=== PATIENT | female | born 1995 | race African-American/Black ===

== ENCOUNTER 2020-07-10 12:38 | Outpatient (REF) | payer OTHER, SELFPAY | END 2020-07-10 12:39 | disposition home or self-care (01) | LOC: HO.LAB 12:38 | PROVIDERS: Visit Provider Internal Medicine | DX: Z12.4 Encounter for screening for malignant neoplasm of cervix (principal) | CPT/HCPCS: 88142 ==

== ENCOUNTER 2022-06-25 13:56 | Outpatient (REF) | payer OTHER, SELFPAY | END 2022-06-25 13:57 | disposition home or self-care (01) | LOC: HO.HOSX 13:56 | PROVIDERS: Visit Provider Physician Assistant | DX: Z13.89 Encounter for screening for other disorder (principal) ==

== ENCOUNTER 2023-10-19 15:37 | Outpatient (AMB) | payer OTHER, SELFPAY ==
[2023-10-19 15:44] VITALS: BP 94/51; PULSE 82; RESP 16; TEMP 35.9; O2SAT 99; BMI 26.8
--- NOTE | 2023-10-19 15:44 | A.OFFPC_ITS ---
Vital Signs 10/19/23 15:44 Height 5 ft 6 in Weight 166 lb 2 oz BMI 26.8 BP 94/51 L Blood Pressure Location Rt brachial Position Sitting Respiration 16 Pulse 82 Pulse Source Pulse Oximeter Temp 96.6 F L Temp Source Tympanic Pulse Oximetry (%) 99 Oxygen Delivery Method Room Air Intake Visit Reasons: Med review Intake Note: med review Allergies No Known Allergies Allergy (Verified 10/19/23 15:45) Tobacco use date assessed: 04/02/22 HPI Med review HPI Details 28 y/o female presents to f/u anxiety. She is on bupropion 75mg b.i.d. and states this has not been working well for her. She denies any hx of bipolar disorder. She denies any known family hx of bipolar diagnoses. PHQ-9 0, SUZETTE-7 16 today. Pt reports a rash on her face. HPI Comments History of Present Illness Details Documentation assistance for Moses Parish MD, was provided by Nicholas Coto,? [employer] on 10/19/2023 at 4:19 PM EST. I, Dr. Parish, have read, observed, and verified documentation. [facility] Medical History (Updated 10/19/23 @ 16:20 by Nicholas Coto) Arthralgia Annual physical exam Surgical History History of mandibular surgery Family History Mother HTN (hypertension) Asthma Father Liver cancer Sister Mental health disorder Sister Uterine cancer Brother Seizures Social History Housing: House Alcohol intake: current Alcohol intake frequency: a few times a week Patient Tobacco Use Status: Never used Tobacco e-Cigarette/Vaping Use: Never Used Current occupational status: employed Cognitive needs: No Hearing needs: No Vision needs: Yes Questionnaire Thrive Questionnaire Date Thrive assessed: 04/02/22 SUZETTE-7 AMB Questionnaire SUZETTE-7 Date SUZETTE - 7 assessed: 04/02/22 Source: Developed by Drs. Lawrence Landin, Nancy Dominique, Fili Washington and colleagues, with an educational shelby from [employer]. Review of Systems Const Denies chills, Denies fatigue, Denies fever(s), Denies headache(s) and Denies weakness ENT Denies dizziness and Denies headache(s) Card Denies dyspnea Resp Denies cough, Denies dyspnea, Denies wheezing and Denies other (shortness of breath) Musc Denies numbness and Denies tingling Skin/Breast Reports rash Neuro Denies dizziness, Denies headache(s), Denies numbness, Denies tingling and D enies weakness Psych Reports anxiety Endo Denies fatigue Aller/Immun Denies wheezing Physical exam (Primary Care) Vital Signs: Last Vital Signs Temp 96.6 F L 10/19/23 15:44 Pulse 82 10/19/23 15:44 Resp 16 10/19/23 15:44 BP 94/51 L 10/19/23 15:44 Pulse Ox 99 10/19/23 15:44 Oxygen Delivery Method Room Air 10/19/23 15:44 BMI result Body Mass Index 26.8 Tobacco/Smoking Status: Tobacco use Status Tobacco use date assessed 04/02/22 10/19/23 15:51 Patient Tobacco Use Status Never used Tobacco 10/19/23 15:51 e-Cigarette/Vaping Use Never Used 10/19/23 15:51 PHQ-9: PHQ-9 Score PHQ-9: Total score 0 10/19/23 15:59 Thrive Assessment: Date of Thrive Assessment Date Thrive assessed 04/02/22 10/19/23 15:51 Const General: well developed; No acute distress Nutritional Appearance: well nourished Orientation/consciousness: patient oriented x3 [facility]: Yes normocephalic and Yes atraumatic Eyes General: appearance normal, both eyes and all related structures Pupils: Equal, round and reactive pupils present EOM: EOMs intact bilaterally Resp Effort & Inspection: normal respiratory effort Neuro General: patient oriented x3 and gait normal Cranial nerves: Yes Equal, round and reactive pupils present Psych Affect: Anxious affect present Assessment and Plan Assessment & Plan (1) Anxiety: Code(s): F41.9 - Anxiety disorder, unspecified Plan: Significant?anxiety She?had?been?on?bupropion?in?the?past?and?this?had?not?helped?much. There?was?a?question?of?possible?b ipolar?disorder?in?the?family.??This?seems?less?likely?at?this?point. Trial?of?venlafaxine - 37.5?mg once?a?day?and?titrate?up?to?twice?a?day. Will?also?give?her?a?script?of?hydroxyzine?which?he?can?take?p.r.n. Will?follow-up?in?about?a?month (2) Rash: Code(s): R21 - Rash and other nonspecific skin eruption Plan: Pustular?rash?on?face Will?give?her?a?short?course?of?doxycycline?and?she?can?use?Hibiclens - avoid?eyes If?not?improving?will?refer?to?Dermatology Orders: Orders Comprehensive Perry. Panel Fast Today Z00.00 - Encounter for general adult medical examination without abnormal findings TSH reflex Free T4 Today Z00.00 - Encounter for general adult medical examination without abnormal findings CT NG by PCR Today Z11.3 - Encounter for screening for infections with a predominantly sexual mode of transmission HIV Ab/Ag Today Z11.3 - Encounter for screening for infections with a predo minantly sexual mode of transmission Hepatitis B,C Profile Today Z11.3 - Encounter for screening for infections with a predominantly sexual mode of transmission Syphilis Screen Today Z11.3 - Encounter for screening for infections with a predominantly sexual mode of transmission Complete Blood Count Auto Diff Today Z00.00 - Encounter for general adult medical examination without abnormal findings Lipid Panel Today Z00.00 - Encounter for general adult medical examination without abnormal findings Microalbumin, Random (w Creat) Today I10 - Essential (primary) hypertension UA and rflx microscopic Today Z00.00 - Encounter for general adult medical examination without abnormal findings Medications: New hydroxyzine HCl 50 mg PO BID 30 days PRN 60 tabs 1RF anxiety venlafaxine 37.5 mg (1/2 x 75 mg) PO BID 30 days 30 tabs 1RF doxycycline hyclate 100 mg PO BID 7 days 14 caps 0RF Coding Level of Care Code Est Pt Level 3 (71406) Diagnoses Anxiety F41.9 Rash R21
--- NOTE | 2023-10-19 15:44 | A.OFFPC_ITS ---
Vital Signs 10/19/23 15:44 Height 5 ft 6 in Weight 166 lb 2 oz BMI 26.8 BP 94/51 L Blood Pressure Location Rt brachial Position Sitting Respiration 16 Pulse 82 Pulse Source Pulse Oximeter Temp 96.6 F L Temp Source Tympanic Pulse Oximetry (%) 99 Oxygen Delivery Method Room Air Intake Visit Reasons: Med review Allergies No Known Allergies Allergy (Verified 10/19/23 15:45) Tobacco use date assessed: 04/02/22 [facility] Medical History (Updated 04/02/22 @ 15:32 by Nicholas Coto) Arthralgia Annual physical exam Surgical History History of mandibular surgery Family History Mother HTN (hypertension) Asthma Father Liver cancer Sister Mental health disorder Sister Uterine cancer Brother Seizures Social History Housing: House Alcohol intake: current Alcohol intake frequency: a few times a week Patient Tobacco Use Status: Never used Tobacco e-Cigarette/Vaping Use: Never Used Current occupational status: employed Cognitive needs: No Hearing needs: No Vision needs: Yes Questionnaire PHQ-9 Over the last 2 weeks, how often have you been bothered by any of the following problems? 1. Little interest or pleasure in doing things: not at all 2. Feeling down, depressed, or hopeless: not at all 3. Trouble falling or staying asleep, or sleeping too much: not at all 4. Feeling tired or having little energy: not at all 5. Poor appetite or overeating: not at all 6. Feeling bad about yourself - or that you are a failure or have let yourself or your family down: not at all 7. Trouble concentrating on things, such as reading the newspaper or watching television: not at all 8. Moving or speaking so slowly that other people could have noticed. Or the opposite - being so fidgety or restless that you have been moving around a lot more than usual: not at all 9. Thoughts that you would be better off or of hurting yourself in some way: not at all Total score: 0 Depression Screening Interpretation: Negative Depression Screening Done: Yes 41023 - PHQ-9 Billing: Yes Source: Developed by Drs. Lawrence Landin, Fili Ybarra and colleagues, with an educational shelby from [employer]. Thrive Questionnaire Date Thrive assessed: 04/02/22 SUZETTE-7 AMB Questionnaire SUZETTE-7 Date SUZETTE - 7 assessed: 10/19/23 Feeling nervous, anxious, or on edge: 3 = Nearly every day Not being able to stop or control worryin = Nearly every day Worrying too much about different things: 3 = Nearly every day Trouble relaxin = Nearly every day Being so restless that it is hard to sit still: 0 = Not at all Becoming easily annoyed or irritable: 3 = Nearly every day Feeling afraid as if something awful might happen: 1 = Several days Total SUZETTE-7 score (0-4 normal; 5-9 mild; 10-14 moderate; 15-21 severe): 16 Source: Developed by Drs. Lawrence Landin, Nancy Dominique, Fili Washington and colleagues, with an educational shelby from [employer]. SUZETTE-7 Assessment Billing SUZETTE-7 Assessment Tool: SUZETTE-7 Assessment 79867 Physical exam (Primary Care) Vital Signs: Last Vital Signs Temp 96.6 F L 10/19/23 15:44 Pulse 82 10/19/23 15:44 Resp 16 10/19/23 15:44 BP 94/51 L 10/19/23 15:44 Pulse Ox 99 10/19/23 15:44 Oxygen Delivery Method Room Air 10/19/23 15:44 BMI result Body Mass Index 26.8 Tobacco/Smoking Status: Tobacco use Status Tobacco use date assessed 04/02/22 10/19/23 15:51 Patient Tobacco Use Status Never used Tobacco 10/19/23 15:51 e-Cigarette/Vaping Use Never Used 10/19/23 15:51 PHQ-9: PHQ-9 Score PHQ-9: Total score 0 10/19/23 15:45 Depression Screening Interpretation: Negative Thrive Assessment: Date of Thrive Assessment Date Thrive assessed 04/02/22 10/19/23 15:51 Coding Additional Codes SUZETTE-7 Assessment Billing - SUZETTE-7 Assessment Tool: SUZETTE-7 Assessment 60013 ([id number])
== END 2023-10-19 16:25 | disposition home or self-care (01) ==
PROVIDERS: PCP Family Medicine; Visit Provider Family Medicine
DX: F41.9 Anxiety disorder, unspecified (principal); R21 Rash and other nonspecific skin eruption
CPT/HCPCS: 99213

== ENCOUNTER 2023-11-25 14:33 | Outpatient (AMB) | payer OTHER, SELFPAY ==
--- NOTE | 2023-11-25 14:43 | A.OFFPC_ITS ---
Vital Signs 11/25/23 14:47 Height 5 ft 6 in Weight 164 lb BMI 26.5 BP 100/60 Blood Pressure Location Lt brachial Position Sitting Respiration 16 Pulse 85 Pulse Source Pulse Oximeter Temp 98.1 F Temp Source Oral Pulse Oximetry (%) 98 Oxygen Delivery Method Room Air Intake Visit Reasons: MED REVIEW Intake Note: med follow up Allergies No Known Allergies Allergy (Verified 11/25/23 14:45) Medication List - Last Reconciled 11/25/23 by Moses Parish MD albuterol sulfate 90 mcg/actuation 2 puffs inhalation Q4-6H PRN 30 days hydroxyzine HCl 50 mg PO BID PRN 30 days venlafaxine 37.5 mg (1/2 x 75 mg) PO BID 30 days Tobacco use date assessed: 04/02/22 HPI MED REVIEW HPI Details 28 y/o female presents to f/u anxiety. Had started her on venlafaxine, hydroxyzine. Had significant anxiety last office visit. Had been on bupropion in the past and had not helped much. PHQ-9 1, SUZETTE-7 3 today. Pt notes mood improved. [facility] Medical History (Updated 10/19/23 @ 16:20 by Nicholas Coto) Arthralgia Annual physical exam Surgical History History of mandibular surgery Family History Mother HTN (hypertension) Asthma Father Liver cancer Sister Mental health disorder Sister Uterine cancer Brother Seizures Social History Housing: House Alcohol intake: current Alcohol intake frequency: a few times a week Patient Tobacco Use Status: Never used Tobacco e-Cigarette/Vaping Use: Never Used Current occupational status: employed Cognitive needs: No Hearing needs: No Vision needs: Yes Questionnaire PHQ-9 Over the last 2 weeks, how often have you been bothered by any of the following problems? 1. Little interest or pleasure in doing things: not at all 2. Feeling down, depressed, or hopeless: not at all 3. Trouble falling or staying asleep, or sleeping too much: not at all 4. Feeling tired or having little energy: several days 5. Poor appetite or overeating: not at all 6. Feeling bad about yourself - or that you are a failure or have let yourself or your family down: not at all 7. Trouble concentrating on things, such as reading the newspaper or watching television: not at all 8. Moving or speaking so slowly that other people could have noticed. Or the opposite - being so fidgety or restless that you have been moving around a lot more than usual: not at all 9. Thoughts that you would be better off or of hurting yourself in some way: not at all Total score: 1 Depression Screening Interpretation: Negative Depression Screening Done: Yes 38497 - PHQ-9 Billing: Yes Source: Developed by Drs. Lawrence Landin, Nancy Dominique, Fili Washington and colleagues, with an educational shelby from [employer]. Thrive Questionnaire Date Thrive assessed: 04/02/22 AUDIT C Alcohol Use Questionnaire (AUDIT-C) 3. How often do you have six or more drinks on one occasion?: Never Total Score: 0 SUZETTE-7 AMB Questionnaire SUZETTE-7 Date SUZETTE - 7 assessed: 11/25/23 Feeling nervous, anxious, or on edge: 0 = Not at all Not being able to stop or control worryin = Not at all Worrying too much about different things: 0 = Not at all Trouble relaxin = Not at all Being so restless that it is hard to sit still: 0 = Not at all Becoming easily annoyed or irritable: 3 = Nearly every day Feeling afraid as if something awful might happen: 0 = Not at all Total SUZETTE-7 score (0-4 normal; 5-9 mild; 10-14 moderate; 15-21 severe): 3 Source: Developed by Drs. Lawrence Landin, Nancy Dominique, Fili Washington and colleagues, with an educational shelby from [employer]. SUZETTE-7 Assessment Billing SUZETTE-7 Assessment Tool: SUZETTE-7 Assessment 25028 Review of Systems Const Denies chills, Denies fatigue, Denies fever(s), Denies headache(s) and Denies weakness ENT Denies dizziness and Denies headache(s) Card Denies dyspnea Resp Denies cough, Denies dyspnea, Denies wheezing and Denies other (shortness of breath) Musc Denies numbness and Denies tingling Neuro Denies dizziness, Denies headache(s), Denies numbness, Denies tingling and Denies weakness Psych Denies anxiety and Denies depression Endo Denies fatigue Aller/Immun Denies wheezing Physical exam (Primary Care) Vital Signs: Last Vital Signs Temp 98.1 F 11/25/23 14:47 Pulse 85 11/25/23 14:47 Resp 16 11/25/23 14:47 BP 100/60 11/25/23 14:47 Pulse Ox 98 11/25/23 14:47 Oxygen Delivery Method Room Air 11/25/23 14:47 BMI result Body Mass Index 26.5 Tobacco/Smoking Status: Tobacco use Status Tobacco use date assessed 04/02/22 11/25/23 14:52 Patient Tobacco Use Status Never used Tobacco 11/25/23 14:52 e-Cigarette/Vaping Use Never Used 11/25/23 14:52 PHQ-9: PHQ-9 Score PHQ-9: Total score 1 11/25/23 15:14 Depression Screening Interpretation: Negative Thrive Assessment: Date of Thrive Assessment Date Thrive assessed 04/02/22 11/25/23 14:52 Const General: well developed; No acute distress Nutritional Appearance: well nourished Orientation/consciousness: patient oriented x3 HENMT Head: Yes normocephalic and Yes atraumatic Eyes General: appearance normal, both eyes and all related structures Pupils: Equal, round and reactive pupils present EOM: EOMs intact bilaterally Resp Effort & Inspection: normal respiratory effort Auscultation: clear to auscultation bilaterally Cardio Rate: regular rate Rhythm: regular rhythm Heart sounds: S1 normal heart sound present, S2 normal heart sound present, no gallops, no murmurs and no rubs Neuro General: patient oriented x3 and gait normal Cranial nerves: Yes Equal, round and reactive pupils present Psych Affect: normal affect Coding Level of Care Code Est Pt Level 3 (40254) Diagnoses Anxiety F41.9 Additional Codes SUZETTE-7 Assessment Billing - SUZETTE-7 Assessment Tool: SUZETTE-7 Assessment 35463 ([id number]) Assessment & Plan Assessment & Plan (1) Anxiety: Code(s): F41.9 - Anxiety disorder, unspecified Category: Medical Plan: Patient?presents?to?follow-up?anxiety. Bupropion?had?not?helped?so?I?switched?her?to?venlafaxine?and?hydroxyzine?p.r.n. Patient?notes?that?venlafaxine?is?improving?her?symptoms?significant ly.??Using?some?hydroxyzine?as?needed?around?bedtime We?discussed?increasing?venlafaxine?from?37.5?mg?b.i.d.?to?75?mg?b.i.d..??I?will ?send?script.??She?can?decide?if?that?is?more?helpful?or?back?her? dose?back?down?to?37.5?b.i.d.?if?she?has?any?problems. Plan Patient?has?not?gotten?her?labs?drawn?yet?but?will?do?so?prior?to?next?visit Medications: Changed From venlafaxine 37.5 mg (1/2 x 75 mg) PO BID 30 days 30 tabs 1RF To venlafaxine 75 mg PO BID 30 days 60 tabs 1RF
[2023-11-25 14:47] VITALS: BP 100/60; PULSE 85; RESP 16; TEMP 36.7; O2SAT 98; BMI 26.5
== END 2023-11-25 15:32 | disposition home or self-care (01) ==
PROVIDERS: PCP Family Medicine; Visit Provider Family Medicine
DX: F41.9 Anxiety disorder, unspecified (principal)

== ENCOUNTER → 2023-11-25 14:33 | Outpatient (BNVA) | payer OTHER, SELFPAY | PROVIDERS: PCP Family Medicine; Visit Provider Family Medicine | DX: F41.9 Anxiety disorder, unspecified (principal) | CPT/HCPCS: 96127 ==

== ENCOUNTER 2024-02-03 14:28 | Outpatient (AMB) | payer OTHER, SELFPAY ==
--- NOTE | 2024-02-03 14:39 | A.OFFPC_ITS ---
Vital Signs 02/03/24 14:44 BMI Reason not done Patient refused/unable BP 116/80 Blood Pressure Location Rt brachial Position Sitting Pulse 77 Pulse Source Pulse Oximeter Pulse Oximetry (%) 95 Oxygen Delivery Method Room Air Intake Visit Reasons: f/u anxiety, labs Intake Note: Follow up. Forgot to lab work done. Computational Physicist Required: No Allergies No Known Allergies Allergy (Verified 02/03/24 14:40) Medication List - Last Reconciled 02/03/24 by Moses Parish MD albuterol sulfate 90 mcg/actuation 2 puffs inhalation Q4-6H PRN 30 days hydroxyzine HCl 50 mg PO BID PRN 30 days venlafaxine 75 mg PO BID 30 days Tobacco use date assessed: 02/03/24 HPI f/u anxiety, labs HPI Details 28 y/o female presents to f/u anxiety, l abs. She states anxiety feels well controlled on venlafaxine and has not needed to use hydroxyzine as much. [facility] Medical History (Updated 10/19/23 @ 16:20 by Nicholas Coto) Arthralgia Annual physical exam Surgical History History of mandibular surgery Family History Mother HTN (hypertension) Asthma Father Liver cancer Sister Mental health disorder Sister Uterine cancer Brother Seizures Social History (Updated 02/03/24 @ 14:43 by Quiana Smith CMA) Housing: House Alcohol intake: current Alcohol intake frequency: a few times a week Patient Tobacco Use Status: Never used Tobacco e-Cigarette/Vaping Use: Never Used Use of substances other than those prescribed or required for medical reasons: Yes Substance Use Type: Marijuana Current occupational status: employed Cognitive needs: No Hearing needs: No Vision needs: Yes Questionnaire PHQ-9 Over the last 2 weeks, how often have you been bothered by any of the following problems? 1. Little interest or pleasure in doing things: not at all 2. Feeling down, depressed, or hopeless: not at all 3. Trouble falling or staying asleep, or sleeping too much: not at all 4. Feeling tired or having little energy: not at all 5. Poor appetite or overeating: not at all 6. Feeling bad about yourself - or that you are a failure or have let yourself or your family down: not at all 7. Trouble concentrating on things, such as reading the newspaper or watching television: not at all 8. Moving or speaking so slowly that other people could have noticed. Or the opposite - being so fidgety or restless that you have been moving around a lot more than usual: not at all 9. Thoughts that you would be better off or of hurting yourself in some way: not at all Total score: 0 Depression Screening Interpretation: Negative Depression Screening Done: Yes 18556 - PHQ-9 Billing: Yes Source: Developed by Drs. Lawrence Landin, Nancy Dominique, Fili Washington and colleagues, with an educational shelby from [employer]. Thrive Questionnaire Date Thrive assessed: 01/27/24 I am a: Patient What is your living situation today?: I have a steady place to live Within the past 12 months, did the food you bought not last and you didn't have the money to get more?: Never true Within the past 12 months, did you worry whether your food would run out before you got money to buy more?: Never true Do you have trouble paying for medicines?: No Do you have trouble getting transportation to medical appointments?: No Do you have trouble paying your heating and electricity bill?: No Do you have trouble taking care of your child, family member or friend?: No Do you have trouble with day-to-day activities such as bathing, preparing meals, shopping, managing finances, etc.?: No Are you currently unemployed and looking for a job?: No Are you interested in more education?: I choose not to answer this question Please select the resources that you would like help with: None Currently or been in a relationship where the following occur: No concerns reported THRIVE Score: 0 AUDIT C Alcohol Use Questionnaire (AUDIT-C) 1. How often do you have a drink containing alcohol?: Monthly or less 2. How many drinks containing alcohol do you have on a typical day when you are drinking?: 1 or 2 Total Score: 1 SUZETTE-7 AMB Questionnaire SUZETTE-7 Date SUZETTE - 7 assessed: 02/03/24 Feeling nervous, anxious, or on edge: 0 = Not at all Not being able to stop or control worryin = Not at all Worrying too much about different things: 0 = Not at all Trouble relaxin = Not at all Being so restless that it is hard to sit still: 0 = Not at all Becoming easily annoyed or irritable: 0 = Not at all Feeling afraid as if something awful might happen: 0 = Not at all Total SUZETTE-7 score (0-4 normal; 5-9 mild; 10-14 moderate; 15-21 severe): 0 Source: Developed by Drs. Lawrence Landin, Nancy Dominique, Fili Washington and colleagues, with an educational shelby from [employer]. SUZETTE-7 Assessment Billing SUZETTE-7 Assessment Tool: SUZETTE-7 Assessment 22830 Review of Systems Const Denies chills, Denies fatigue, Denies fever(s), Denies headache(s) and Denies weakness ENT Denies dizziness and Denies headache(s) Card Denies dyspnea Resp Denies cough, Denies dyspnea, Denies wheezing and Denies other (shortness of breath) Musc Denies numbness and Denies tingling Neuro Denies dizziness, Denies headache(s), Denies numbness, Denies tingling and Denies weakness Psych Denies anxiety and Denies depression Endo Denies fatigue Aller/Immun Denies wheezing Physical exam (Primary Care) Vital Signs: Last Vital Signs Pulse 77 02/03/24 14:44 BP 116/80 02/03/24 14:44 Pulse Ox 95 02/03/24 14:44 Oxygen Delivery Method Room Air 02/03/24 14:44 Tobacco/Smoking Status: Tobacco use Status Tobacco use date assessed 02/03/24 02/03/24 14:44 Patient Tobacco Use Status Never used Tobacco 02/03/24 14:44 e-Cigarette/Vaping Use Never Used 02/03/24 14:44 PHQ-9: PHQ-9 Score PHQ-9: Total score 0 02/03/24 14:57 Depression Screening Interpretation: Negative Thrive Assessment: Date of Thrive Assessment Date Thrive assessed 01/27/24 02/03/24 14:44 Currently or been in a relationship where the following occur: No concerns reported Const General: well developed; No acute distress Nutritional Appearance: well nourished Orientation/consciousness: patient oriented x3 HENMT Head: Yes normocephalic and Yes atraumatic Eyes General: appearance normal, both eyes and all related structures Pupils: Equal, round and reactive pupils present EOM: EOMs intact bilaterally Resp Effort & Inspection: normal respiratory effort Neuro General: patient oriented x3 and gait normal Cranial nerves: Yes Equal, round and reactive pupils present Psych Affect: normal affect Coding Level of Care Code Est Pt Level 3 (54171) Diagnoses Anxiety F41.9 Additional Codes SUZETTE-7 Assessment Billing - SUZETTE-7 Assessment Tool: SUZETTE-7 Assessment 24732 ([id number]) PHQ-9 - 53577 - PHQ-9 Billing: Yes ([id number]) Assessment & Plan Assessment & Plan (1) Anxiety: Code(s): F41.9 - Anxiety disorder, unspecified Category: Medical Plan: Well?controlled?on?current?dose?of?venlafaxine.??Patient?says?she?has?not?been?n eeding?hydroxyzine. Continue?current?medication?regimen.??Does?not?need?use?hydroxyzine?if?unneeded.
[2024-02-03 14:44] VITALS: BP 116/80; PULSE 77; O2SAT 95
== END 2024-02-03 14:58 | disposition home or self-care (01) ==
PROVIDERS: PCP Family Medicine; Visit Provider Family Medicine
DX: F41.9 Anxiety disorder, unspecified (principal)

== ENCOUNTER → 2024-02-03 14:28 | Outpatient (BNVA) | payer OTHER, SELFPAY | PROVIDERS: PCP Family Medicine; Visit Provider Family Medicine | DX: F41.9 Anxiety disorder, unspecified (principal); Z79.899 Other long term (current) drug therapy | CPT/HCPCS: 96127 ==

== ENCOUNTER 2025-01-01 11:36 | Outpatient (REF) | payer BC, SELFPAY ==
--- OUTSIDE RECORDS SUMMARY | 2025-01-01 14:55 | XMS_ITS | Clinical Summary ---
Author Organization [facility] Address [address] [place] [address] Care Team Providers Care Draw Frame Tender Name Role Phone Yonas De La Paz MD Primary Care Provider + Allergies No known active allergies Medications Medication Sig Dispensed Refills Start Date End Date Status loratadine (CLARITIN) 10 MG tablet Take 10 mg by mouth daily. 0 Active Montelukast Sodium (SINGULAIR OR) Take 1 Tab by mouth daily. 0 Active Melatonin 10 MG Tab Take 1 Tab by mouth at bedtime as needed. 0 Active ALBUTEROL SULFATE 108 (90 BASE) MCG/ACT Aero Soln Inhale 2 Puffs into the lungs every 4 hours as needed for Cough or Wheezing. 1 Inhaler 0 08/05/2016 Active Active Problems Problem Noted Date ADD (attention deficit disorder) without hyperactivity 09/03/2016 Overview: 05/29/15 on Adderall XR 15 mg Asthma Seasonal allergies Insomnia Immunizations Name Administration Dates Next Due DTaP 1998, 6,03/29/1994,1993,07/1993 HIB 12/09/1994,03/29/1994 HPV (Gardasil) 09/01/2008,12/26/2006,07/01/2006 Hepatitis B-3 Dose (<19yrs) 06/28/1994, 4,1993 Influenza (> 6 Months) 05/29/2015 MMR (Tregahl-Yveeu-Zklrsex) 1998, 5 Meningococcal (Menactra) 10/08/2011,08/08/2007 Polio (IPV) 1998,05/05/1995,1993 ,1993 Tdap 07/01/2006 Family History Medical History Relation Name Comments Seizures Brother half paternal No Known Problems Father Hypertension Maternal Grandmother Arthrit is Hypertension Mother Arthritis, Jg iated Disc [Other][ Alzheimers Disease Paternal Grandmother CA Breast Sister half maternal. Arthritis [place] Colon Negative Hx [place] Ovarian Negative Hx Diabetes Negative Hx [place] Negative Hx Stroke Negative Hx Relation Name Status Comments Brother Alive Father Alive Maternal Grandfather Maternal Grandmother Alive Mother Alive Paternal Grandfather Paternal Grandmother Alive Sister Alive Social History Tobacco Use Types Packs/Day Years Used Date Smoking Tobacco: Never Alcohol Use Standard Drinks/Week Comments Yes 0 (1 standard drink = 0.6 oz pur e alcohol) rare Sex Assigned at Date Recorded Not on file Last Filed Vital Signs Vital Sign Reading Time Taken Comments Blood Pressure 104/76 08/05/2016 8:57 AM EDT Pulse 72 08/05/2016 8:57 AM EDT Temperature 37.1 C (98.7 F) 08/05/2016 8:57 AM EDT Respiratory Rate 18 08/05/2016 8:57 AM EDT Oxygen Saturation - - Inhaled Oxygen Concentration - - Weight 94.4 kg (208 lb 3.2 oz) 08/05/2016 8:57 A M EDT Height 168.9 cm (5' 6.5 ) 08/05/2016 8:57 AM EDT Body Mass Index 33.1 08/05/2016 8:57 AM EDT Plan of Treatment Health Maintenance Due Date Last Done Comments Covid-19 Vaccine (#1) 03/07/1994 TOBACCO CHECK/ADVISE 09/05/2011 BASELINE HEALTH EXAM 18-39 2012 PNEUMOCOCCAL VACCINE FOR HIG H RISK PATIENTS (#1) 2012 CHOLESTEROL SCREENING 2013 CERVICAL CANCER SCREENING 2014 DTAP/TDAP/TD (7 - Td or Tdap) 07/01/2016, 1998, 04/07/1995, Additional history exists BMI CHECK/ADVISE 02/22/2024 INFLUENZA (#1) 2024 05/29/2015 Care Teams Draw Frame Tender Relationship Specialty Start Date End Date Yonas De La Paz MD [address] [place] [id number] PCP - General Internal Medicine 09/07/21
[2025-01-01 18:00] LABS: Alanine Aminotransferase 13 U/L (0-31); Albumin Level 4.3 g/dL (3.5-5.0); Alkaline Phosphatase 56 U/L (39-117); Anion Gap 9 (12-20); Aspartate Amino Transferase 24 U/L (5-31); Blood Urea Nitrogen 17 mg/dL (9-16); Calcium 9.1 mg/dL (8.4-10.2); Carbon Dioxide 27 mmol/L (22-29); Chloride 106 mmol/L (96-108); Estimated Glomerular Filt Rate > 60; Potassium 4.2 mmol/L (3.3-5.1); Sodium 138 mmol/L (135-145); Total Protein 6.9 g/dL (6.5-8.0)
[2025-01-04 02:13] LABS: Levetiracetam Keppra 15.8 mcg/mL (6.0-46.0)
== END 2025-01-01 11:37 | disposition home or self-care (01) ==
LOC: HO.WFDLDS 11:36
PROVIDERS: PCP Family Medicine; Visit Provider Family Medicine
DX: R56.9 Unspecified convulsions (principal); Z79.899 Other long term (current) drug therapy
CPT/HCPCS: 36415; 80053; 80177; 96127

== ENCOUNTER 2025-01-01 11:36 | Outpatient (AMB) | payer BC, SELFPAY ==
--- NOTE | 2025-01-01 11:52 | A.OFFPC_ITS ---
Vital Signs 01/01/25 11:55 Height 5 ft 6 in Weight 170 lb BMI 27.4 BP 100/66 Blood Pressure Location Rt brachial Position Sitting Respiration 16 Pulse 71 Pulse Source Pulse Oximeter Temp 98.1 F Temp Source Oral Pulse Oximetry (%) 98 Oxygen Delivery Method Room Air Intake Visit Reasons: FMLA paperwork for seizures Intake Note: patient is scheduled to complete fmla paperwork with pcp Acid Maker Required: No Allergies No Known Allergies Allergy (Verified 01/01/25 11:53) Medication List - Last Reconciled 01/01/25 by Moses Parish MD albuterol sulfate 90 mcg/actuation 2 puffs inhalation Q4-6H PRN 30 days levetiracetam (Keppra) 500 mg PO Q12H 30 days Tobacco use date assessed: 02/03/24 HPI FMLA paperwork for seizures HPI Details 29 y/o female presents for FMLA paperwor k for seizures. Recent ED visit 12/08/24 for seizure-like activity. Known seizure/epilepsy hx. They recommended starting Keppra 500mg twice a day. They recommended f/u with neurology. She notes she has an appt. with them in February. Has not had any seizures since she started her Keppra. [facility] Medical History (Updated 01/01/25 @ 11:59 by Nicholas Coto) Arthralgia Annual physical exam Surgical History History of mandibular surgery Family History Mother HTN (hypertension) Asthma Father Liver cancer Sister Mental health disorder Sister Uterine cancer Brother Seizures Social History (Updated 02/03/24 @ 14:43 by Quiana Smith CMA) Housing: House Alcohol intake: current Alcohol intake frequency: a few times a week Patient Tobacco Use Status: Never used Tobacco e-Cigarette/Vaping Use: Never Used Substance Use Type: Marijuana Current occupational status: employed Cognitive needs: No Hearing needs: No Vision needs: Yes Questionnaire PHQ-9 Over the last 2 weeks, how often have you been bothered by any of the following problems? 1. Little interest or pleasure in doing things: not at all 2. Feeling down, depressed, or hopeless: not at all 3. Trouble falling or staying asleep, or sleeping too much: several days 4. Feeling tired or having little energy: several days 5. Poor appetite or overeating: not at all 6. Feeling bad about yourself - or that you are a failure or have let yourself or your family down: not at all 7. Trouble concentrating on things, such as reading the newspaper or watching television: more than half the days 8. Moving or speaking so slowly that other people could have noticed. Or the opposite - being so fidgety or restless that you have been moving around a lot more than usual: more than half the days 9. Thoughts that you would be better off or of hurting yourself in some way: not at all Total score: 6 Source: Developed by Drs. Lawrence Landin, Nancy Dominiuqe, Fili Washington and colleagues, with an educational shelby from [employer]. Thrive Questionnaire Date Thrive assessed: 01/27/24 I am a: Patient What is your living situation today?: I have a steady place to live Within the past 12 months, did the food you bought not last and you didn't have the money to get more?: Never true Within the past 12 months, did you worry whether your food would run out before you got money to buy more?: Never true Do you have trouble paying for medicines?: No Do you have trouble getting transportation to medical appointments?: No Do you have trouble paying your heating and electricity bill?: No Do you have trouble taking care of your child, family member or friend?: No Do you have trouble with day-to-day activities such as bathing, preparing meals, shopping, managing finances, etc.?: No Are you currently unemployed and looking for a job?: No Are you interested in more education?: I choose not to answer this question Please select the resources that you would like help with: None Currently or been in a relationship where the following occur: No concerns reported THRIVE Score: 0 AUDIT C Alcohol Use Questionnaire (AUDIT-C) 1. How often do you have a drink containing alcohol?: Monthly or less 2. How many drinks containing alcohol do you have on a typical day when you are drinking?: 1 or 2 3. How often do you have six or more drinks on one occasion?: Never Total Score: 1 SUZETTE-7 AMB Questionnaire SUZETTE-7 Date SUZETTE - 7 assessed: 02/03/24 Feeling nervous, anxious, or on edge: 0 = Not at all Not being able to stop or control worryin = Several days Worrying too much about different things: 1 = Several days Trouble relaxin = Several days Being so restless that it is hard to sit still: 0 = Not at all Becoming easily annoyed or irritable: 1 = Several days Feeling afraid as if something awful might happen: 0 = Not at all Total SUZETTE-7 score (0-4 normal; 5-9 mild; 10-14 moderate; 15-21 severe): 4 Source: Developed by Drs. Lawrence Landin, Nancy Dmoinique, Fili Washington and colleagues, with an educational shelby from [employer]. Review of Systems Const Denies chills, Denies fatigue, Denies fever(s), Denies headache(s) and Denies weakness ENT Denies dizziness and Denies headache(s) Card Denies dyspnea Resp Denies cough, Denies dyspnea, Denies wheezing and Denies other (shortness of breath) Musc Denies numbness and Denies tingling Neuro Denies dizziness, Denies headache(s), Denies numbness, Denies tingling and Denies weakness Psych Denies anxiety and Denies depression Endo Denies fatigue Aller/Immun Denies wheezing Physical exam (Primary Care) Vital Signs: Last Vital Signs Temp 98.1 F 01/01/25 11:55 Pulse 71 01/01/25 11:55 Resp 16 01/01/25 11:55 BP 100/66 01/01/25 11:55 Pulse Ox 98 01/01/25 11:55 Oxygen Delivery Method Room Air 01/01/25 11:55 BMI result Body Mass Index 27.4 Tobacco/Smoking Status: Tobacco use Status Tobacco use date assessed 02/03/24 01/01/25 11:57 Patient Tobacco Use Status Never used Tobacco 01/01/25 11:57 e-Cigarette/Vaping Use Never Used 01/01/25 11:57 PHQ-9: PHQ-9 Score PHQ-9: Total score 6 01/01/25 12:01 Thrive Assessment: Date of Thrive Assessment Date Thrive assessed 01/27/24 01/01/25 11:57 Currently or been in a relationship where the following occur: No concerns reported Const General: well developed; No acute distress Nutritional Appearance: well nourished Orientation/consciousness: patient oriented x3 HENMT Head: Yes normocephalic and Yes atraumatic Eyes General: appearance normal, both eyes and all related structures Pupils: Equal, round and reactive pupils present EOM: EOMs intact bilaterally Resp Effort & Inspection: normal respiratory effort Neuro General: patient oriented x3 and gait normal Cranial nerves: Yes Equal, round and reactive pupils present Psych Affect: normal affect Coding Level of Care Code Est Pt Level 3 (49641) Diagnoses Seizures R56.9 Assessment & Plan Assessment & Plan (1) Seizures: Code(s): R56.9 - Unspecified convulsions Category: Medical Plan: Initial seizure was 09/18/2024. Seen at ED but discharge without medication. Second seizure was 12/08/2024. She had been at a [employer] democrat and was playing beer pong. Was seen at [facility] and started on Keppra. She has appointment for neurology February. She has had only 2 seizures and no further seizures since starting Keppra. Will have her continue Keppra Checking Keppra level Will seen if she can get an appointment with Neurology sooner. Strongly advised she not drive a car Filled out [facility] paperwork for intermittent leave. Up to 1 episode per month for medical visits and up to 4 episodes per month for flare-ups of seizure disorder. Also requesting accommodation that she can use a chair during work for to 15 minutes x2 episodes day due to fatigue while adjusting to Keppra. Requesting this accommodation from today through March 03. Discussed with patient that she should continue the medication Avoid triggers such as sleep deprivation, caffeine, alcohol or dehydration. History of ADHD but she is not on stimulant medications. She has an appointment to follow-up seizures in January. Orders: Orders Levetiracetam Keppra Today R56.9 - Unspecified convulsions Comprehensive Met. Panel Today R56.9 - Unspecified convulsions
[2025-01-01 11:55] VITALS: BP 100/66; PULSE 71; RESP 16; TEMP 36.7; O2SAT 98; BMI 27.4
== END 2025-01-01 13:01 | disposition home or self-care (01) ==
LOC: HO.HMCFM 11:37
PROVIDERS: PCP Family Medicine; Visit Provider Family Medicine
DX: R56.9 Unspecified convulsions (principal)